=== PATIENT | male | born 1980 | race Caucasian/White ===

== ENCOUNTER 2021-07-17 08:57 | Inpatient (IN) | payer SELFPAY ==
[2021-07-17] MEDS ORDERED: CIPROFLOXACIN 400mg IV 400 MG/200 ML BAG IV ONE (09:42)
[2021-07-17] MEDS ORDERED: MORPHINE 2 MG/ML SYR ONE ×2 (09:42→10:39)
[2021-07-17] MEDS ORDERED: LORazepam 2 MG/ML VIAL ONE (09:42)
[2021-07-17] MEDS ORDERED: ONDANSETRON 4 MG/2 ML VIAL ONE ×2 (09:42→12:35)
[2021-07-17] MEDS ORDERED: VANCOMYCIN 1 GM in NA CHLORIDE 0.9% 250 ML IVPB ONE (10:00)
[2021-07-17 10:20] LABS: Absolute Lymphocytes (CBC) 1.4 K/uL (0.7-4.9); Lymphocytes % 7.6 % (15.3-44.8); MPV 7.3 fL (7.6-11.3); RBC Red Blood Cell Count 4.94 M/uL (4.33-5.43)
[2021-07-17 10:30] LABS: Albumin 4.1 g/dL (3.4-5.0); Bilirubin Direct 0.2 mg/dL (0-0.2); C-Reactive Protein 93.4 mg/L (<3.00); Potassium 3.6 mmol/L (3.5-5.1)
[2021-07-17 10:34] LABS: Protein, Total 8.1 g/dL (6.4-8.2)
--- NOTE | 2021-07-17 11:01 | ER ---
Nurse's Notes [facility] Name: Erik Ortiz Age: 41 yrs Sex: Male : 1980 Arrival Date: 07/17/2021 Time: 08:58 Bed 7 Private MD: Diagnosis: Cellulitis of right lower limb Presentation: 07/17 09:00 Chief complaint: EMS states: Spider bite from 05/27/20 to right medial ankle, redness jl7 and swelling noted. Pt reports "I've been to like 6 hospitals for this and taken a bunch of antibiotics but it still looks like this.". Coronavirus screen: At this time, the client does not indicate any symptoms associated with coronavirus-19. Ebola Screen: No symptoms or risks identified at this time. Initial Sepsis Screen: Does the patient meet any 2 criteria? No. Patient's initial sepsis screen is negative. Does the patient have a suspected source of infection? No. Patient's initial sepsis screen is negative. Risk Assessment: Do you want to hurt yourself or someone else? Patient reports no desire to harm self or others. Onset of symptoms was May 27, 2020. Care prior to arrival: None. 09:00 Method Of Arrival: EMS: [facility] jl7 09:00 Acuity: LD 3 jl7 Triage Assessment: 09:04 General: Appears in no apparent distress. uncomfortable, Behavior is cooperative, jl7 anxious. Pain: Complains of pain in right ankle Pain currently is 9.5 out of 10 on a pain scale. Pain began x 2 months. Neuro: Level of Consciousness is awake, alert, obeys commands, Oriented to person, place, time, situation. Cardiovascular: Patient's skin is warm and dry. Respiratory: Airway is patent Respiratory effort is even, unlabored, Respiratory pattern is regular, symmetrical. Derm: Skin is pink, warm \\T\\ dry. Injury Description: Bite sustained to right ankle caused by a spider, is from insect was sustained x 2 months. Historical: - Allergies: 09:04 Apples; jl7 - Home Meds: 09:04 None [Active]; jl7 - PMHx: 09:04 None; jl7 - PSHx: 09:04 None; jl7 - Immunization history:: Client reports having NOT received the Covid vaccine. - Social history:: Smoking status: Patient reports the use of cigarette tobacco products, smokes one pack cigarettes per day. Patient/guardian denies using alcohol, street drugs. Screenin:09 Abuse screen: Denies threats or abuse. Denies injuries from another. Nutritional [facility] screening: No deficits noted. Tuberculosis screening: No symptoms or risk factors identified. Fall Risk None identified. Assessment: 09:05 Reassessment: See triage. [facility] 09:09 Reassessment: GISSELLE Lester at bedside assessing pt. [facility] 10:00 Reassessment: Patient appears in no apparent distress at this time. No changes from jl7 previously documented assessment. Patient and/or family updated on plan of care and expected duration. Pain level reassessed. Patient is alert, oriented x 3, equal unlabored respirations, skin warm/dry/pink. 11:00 Reassessment: Patient appears in no apparent distress at this time. No changes from jl7 previously documented assessment. Patient and/or family updated on plan of care and expected duration. Pain level reassessed. Patient is alert, oriented x 3, equal unlabored respirations, skin warm/dry/pink. 12:00 Reassessment: Patient appears in no apparent distress at this time. No changes from jl7 previously documented assessment. Patient and/or family updated on plan of care and expected duration. Pain level reassessed. Patient is alert, oriented x 3, equal unlabored respirations, skin warm/dry/pink. 13:00 Reassessment: Patient appears in no apparent distress at this time. No changes from jl7 previously documented assessment. Patient and/or family updated on plan of care and expected duration. Pain level reassessed. Patient is alert, oriented x 3, equal unlabored respirations, skin warm/dry/pink. 14:00 Reassessment: Patient appears in no apparent distress at this time. No changes from jl7 previously documented assessment. Patient and/or family updated on plan of care and expected duration. Pain level reassessed. Patient is alert, oriented x 3, equal unlabored respirations, skin warm/dry/pink. 15:00 Reassessment: Patient appears in no apparent distress at this time. No changes from jl7 previously documented assessment. Patient and/or family updated on plan of care and expected duration. Pain level reassessed. Patient is alert, oriented x 3, equal unlabored respirations, skin warm/dry/pink. 16:00 Reassessment: Patient appears in no apparent distress at this time. No changes from jl7 previously documented assessment. Patient and/or family updated on plan of care and expected duration. Pain level reassessed. Patient is alert, oriented x 3, equal unlabored respirations, skin warm/dry/pink. 16:30 Reassessment: Attempted to call report, nurse unavailable, Roxane states "She will jl7 call you in a few minutes.". 18:30 Reassessment: Attempted to call report, nurse unavailable, Roxane states "She's jl7 getting a pt ready for EMS, she will call you back.". 19:34 Reassessment: Attempted to call report. nurse states she unavailable because she is sm5 still getting report from day shift. Vital Signs: 09:00 BP 144 / 83; Pulse 100; Resp 17; Temp 98.3; Pulse Ox 99% ; Weight 86.18 kg; Height 5 7 ft. 10 in. (177.80 cm); Pain 9/10; 10:08 BP 142 / 85; Pulse 92; Resp 17; Pulse Ox 99% ; jl7 13:00 BP 129 / 86; Pulse 98; Resp 15; Pulse Ox 100% ; jl7 16:39 BP 129 / 83; Pulse 91; Resp 15; Pulse Ox 98% ; jl7 09:00 Body Mass Index 27.26 (86.18 kg, 177.80 cm) jl7 ED Course: 08:58 Patient arrived in ED. jl7 08:58 Trevon Fish PA is PHCP. jr8 08:59 Jake Reyes MD is Attending Physician. jr8 09:04 Triage completed. jl7 09:04 Arm band placed on right wrist. jl7 09:09 Patient has correct armband on for positive identification. Bed in low position. Call [facility] light in reach. Side rails up X 1. Pulse ox on. NIBP on. 09:35 Dereje Flood RN is Primary Nurse. jl7 10:00 Inserted saline lock: 20 gauge in right antecubital area, using aseptic technique. jl7 Blood collected. 10:00 Initial lab(s) drawn, by mt, sent to lab. First set of blood cultures drawn by mt. jl7 10:04 Second set of blood cultures drawn by mt. jl7 10:56 Alfredo Adhikari MD is Hospitalizing Provider. jr8 11:15 XRAY Ankle RIGHT 3 view In Process Unspecified. EDMS 16:37 No provider procedures requiring assistance completed. Patient admitted, IV remains in jl7 place. intact, No redness/swelling at site. Administered Medications: 10:05 Drug: Cipro (ciprofloxacin) 400 mg Volume: 200 ml; Route: IVPB; Infused Over: 60 mins; jl7 Site: right antecubital; 11:05 Follow up: Response: No adverse reaction; IV Status: Completed infusion jl7 10:05 Drug: Ativan (LORazepam) 1 mg Route: IVP; Site: right antecubital; jl7 10:30 Follow up: Response: No adverse reaction jl7 10:05 Drug: Zofran (Ondansetron) 4 mg Route: IVP; Site: right antecubital; jl7 17:22 Follow up: Response: No adverse reaction jl7 10:08 Drug: morphine 2 mg Route: IVP; Site: right antecubital; jl7 10:30 Follow up: Response: No adverse reaction; Pain is decreased jl7 11:00 Drug: vancoMYCIN 1 grams Route: IVPB; Infused Over: 2 hrs; Site: right antecubital; jl7 13:00 Follow up: Response: No adverse reaction; IV Status: Completed infusion jl7 12:36 Drug: Zofran (Ondansetron) 4 mg Route: IVP; Site: right antecubital; ss 13:00 Follow up: Response: No adverse reaction jl7 Outcome: 11:01 Decision to Hospitalize by Provider. jr8 20:14 Admitted to Med/surg accompanied by tech, via wheelchair, with chart. 5 20:14 Condition: stable 20:14 Instructed on the need for admit. 20:15 Patient left the ED. 5 Signatures: Dispatcher [employer] EDMS Clau Francois RN RN Trevon Worrell PA PA jr8 Dereje Flood RN RN jl7 Ava Raya RN RN 5 Corrections: (The following items were deleted from the chart) 09:08 09:04 Allergies: No Known Allergies; 7 jl7 10:08 10:00 Cipro (ciprofloxacin) 400 mg 200 ml IVPB in right antecubital over 60 mins 200 ml jl7 jl7 16:39 16:00 BP 129 / 83; Pulse 91bpm; Resp 15bpm; Pulse Ox 98%; jl7 jl7
--- NOTE | 2021-07-17 11:01 | EDPHYS ---
Physician Documentation [facility] Name: Erik Ortiz Age: 41 yrs Sex: Male : 1980 Arrival Date: 07/17/2021 Time: 08:58 Bed 7 Private MD: ED Physician Jake Reyes HPI: 07/17 10:41 This 41 yrs old Male presents to ER via EMS with complaints of Swelling right leg. jr8 10:41 The patient presents with pain, swelling, tenderness, redness. The complaints affect jr8 the right lower extremity. Onset: The symptoms/episode began/occurred gradually, 2 day(s) ago. Modifying factors: The symptoms are alleviated by nothing. the symptoms are aggravated by movement, weight bearing. Associated signs and symptoms: The patient has no apparent associated signs or symptoms. Severity of symptoms: At their worst the symptoms were moderate, in the emergency department the symptoms are unchanged. The patient has experienced similar episodes in the past. The patient has been recently seen by a physician:. Patient stated that he has been undergoing wound care and recently had ABX which he completed for right lower extremity wound. Stated that the redness had improved but now that he is off antibiotics is having increased redness, swelling, and pain to right lower leg. Stated that pain is so bad that he is unable to ambulation on extremity . Historical: - Allergies: 09:04 Apples; jl7 - Home Meds: 09:04 None [Active]; jl7 - PMHx: 09:04 None; jl7 - PSHx: 09:04 None; jl7 - Immunization history:: Client reports having NOT received the Covid vaccine. - Social history:: Smoking status: Patient reports the use of cigarette tobacco products, smokes one pack cigarettes per day. Patient/guardian denies using alcohol, street drugs. ROS: 10:41 Eyes: Negative for injury, pain, redness, and discharge, ENT: Negative for injury, jr8 pain, and discharge, Neck: Negative for injury, pain, and swelling, Cardiovascular: Negative for chest pain, palpitations, and edema, Respiratory: Negative for shortness of breath, cough, wheezing, and pleuritic chest pain, Abdomen/GI: Negative for abdominal pain, nausea, vomiting, diarrhea, and constipation, Back: Negative for injury and pain, Neuro: Negative for headache, weakness, numbness, tingling, and seizure. 10:41 MS/extremity: Positive for decreased range of motion, erythema, pain, swelling, tenderness, warmth, of the right lower extremity. 10:41 Skin: Positive for erythema. Exam: 10:45 Neck: Trachea midline, no thyromegaly or masses palpated, and no cervical jr8 lymphadenopathy. Supple, full range of motion without nuchal rigidity, or vertebral point tenderness. No Meningismus. Cardiovascular: Regular rate and rhythm with a normal S1 and S2. No gallops, murmurs, or rubs. Normal PMI, no JVD. No pulse deficits. Respiratory: Lungs have equal breath sounds bilaterally, clear to auscultation and percussion. No rales, rhonchi or wheezes noted. No increased work of breathing, no retractions or nasal flaring. Abdomen/GI: Soft, non-tender, with normal bowel sounds. No distension or tympany. No guarding or rebound. No evidence of tenderness throughout. Skin: Warm, dry with normal turgor. Normal color. Small ulcerative lesions to left foot and leg noted. Erythema noted to right lower leg that is circumfrential. Small wound noted to anterior distal tibia where the surrounding erythema is MS/ Extremity: Pulses equal, no cyanosis. Neurovascular intact. Full, normal range of motion. Neuro: Awake and alert, GCS 15, oriented to person, place, time, and situation. Cranial nerves II-XII grossly intact. Motor strength 5/5 in all extremities. Sensory grossly intact. 10:45 Constitutional: The patient appears alert, awake, anxious, in obvious pain. Vital Signs: 09:00 BP 144 / 83; Pulse 100; Resp 17; Temp 98.3; Pulse Ox 99% ; Weight 86.18 kg; Height 5 jl7 ft. 10 in. (177.80 cm); Pain 9/10; 10:08 BP 142 / 85; Pulse 92; Resp 17; Pulse Ox 99% ; jl7 13:00 BP 129 / 86; Pulse 98; Resp 15; Pulse Ox 100% ; jl7 16:39 BP 129 / 83; Pulse 91; Resp 15; Pulse Ox 98% ; jl7 09:00 Body Mass Index 27.26 (86.18 kg, 177.80 cm) 7 MDM: 08:59 Patient medically screened. jr8 10:56 Data reviewed: vital signs, nurses notes, lab test result(s), radiologic studies, plain [facility] films. Data interpreted: Pulse oximetry: on room air is 99 %. Interpretation: normal. Counseling: I had a detailed discussion with the patient and/or guardian regarding: the historical points, exam findings, and any diagnostic results supporting the discharge/admit diagnosis, lab results, radiology results, the need for further work-up and treatment in the hospital. 07/17 09:32 Order name: CBC with Diff; Complete Time: 10:41 [facility] 07/17 09:32 Order name: Basic Metabolic Panel; Complete Time: 10:41 [facility] 07/17 09:32 Order name: LFT's; Complete Time: 10:41 [facility] 07/17 09:32 Order name: Blood Culture Adult (2) [facility] 07/17 09:32 Order name: CRP; Complete Time: 10:41 [facility] 07/17 09:32 Order name: Procalcitonin; Complete Time: 10:53 [facility] 07/17 10:45 Order name: XRAY Ankle RIGHT 3 view; Complete Time: 11:23 [facility] 07/17 11:18 Order name: COVID-19 (Coronavirus) Document "Date of Onset" if Symptomatic [facility] 07/17 12:17 Order name: Lower Extremity W/ Cont; Complete Time: 13:23 [facility] 07/17 13:56 Order name: SARS-COV-2 RT PCR; Complete Time: 14:17 [facility] 07/17 09:32 Order name: IV; Complete Time: 10:07 [facility] 07/17 11:17 Order name: Diet Regular; Complete Time: 11:18 [facility] 07/17 12:11 Order name: CONS Physician Consult [facility] 07/17 12:20 Order name: Diet Regular; Complete Time: 12:20 jl7 Administered Medications: 10:05 Drug: Cipro (ciprofloxacin) 400 mg Volume: 200 ml; Route: IVPB; Infused Over: 60 mins; jl7 Site: right antecubital; 11:05 Follow up: Response: No adverse reaction; IV Status: Completed infusion jl7 10:05 Drug: Ativan (LORazepam) 1 mg Route: IVP; Site: right antecubital; jl7 10:30 Follow up: Response: No adverse reaction jl7 10:05 Drug: Zofran (Ondansetron) 4 mg Route: IVP; Site: right antecubital; jl7 17:22 Follow up: Response: No adverse reaction jl7 10:08 Drug: morphine 2 mg Route: IVP; Site: right antecubital; jl7 10:30 Follow up: Response: No adverse reaction; Pain is decreased jl7 11:00 Drug: vancoMYCIN 1 grams Route: IVPB; Infused Over: 2 hrs; Site: right antecubital; jl7 13:00 Follow up: Response: No adverse reaction; IV Status: Completed infusion jl7 12:36 Drug: Zofran (Ondansetron) 4 mg Route: IVP; Site: right antecubital; ss 13:00 Follow up: Response: No adverse reaction jl7 Disposition Summary: 07/17/21 11:01 Hospitalization Ordered Hospitalization Status: Inpatient Admission jr8 Provider: Alfredo Adhikari Location: Telemetry/MedSurg (Inpatient) jr8 Condition: Stable jr8 Problem: new jr8 Symptoms: have improved jr8 Bed/Room Type: Standard [facility] Room Assignment: 210(07/17/21 14:49) as6 Diagnosis - Cellulitis of right lower limb jr8 Forms: - Medication Reconciliation Form jr8 - SBAR form jr8 Signatures: Dispatcher [employer] EDMS Clau Francois RN RN ss Roszak, Josh, PA PA jr8 Dereje Flood RN RN jl7 Buster Zarco RN RN as6 Corrections: (The following items were deleted from the chart) 09:08 09:04 Allergies: No Known Allergies; 7 14:49 11:01 jr8 as6
--- NOTE | 2021-07-17 11:22 | RAD REPORT ---
EXAM DESCRIPTION: RAD - Ankle Right 3 View - 07/17/2021 11:14 am CLINICAL HISTORY: Right ankle pain FINDINGS: No fracture or dislocation is seen. Edema within the soft tissues. No bony destructive lesions seen
[2021-07-17] MEDS ORDERED: VANCOMYCIN 1 GM/VIAL ONE (11:25)
[2021-07-17] MEDS ORDERED: NA CHLORIDE 0.9% 250 ML ONE (11:25)
--- NOTE | 2021-07-17 12:15 | P.CNS ---
Date of Consult: 07/17/21 History of Present Illness: The patient is a 41-year-old male with a past medical history of throat cancer? Who presented to the emergency department secondary to increased redness swelling and pain to his right lower extremity. Patient is poor historian, difficult to obtain history. Patient states that he has been hospitalized since May of this year secondary to the foot infection. He states that the infection initially began after he was cleaning out a trailer in [place] and got a spider bite on May 17. Per patient he is hospitalized initially in April secondary to suicidal ideations, he was then placed in patient at [facility]. Following this stay, he was hospitalized at [facility] as well as [place] due to his foot infection. He states that he was placed on doxycycline for 10 days however after he completed the antibiotics the infection began to worsen. He currently reports of nausea, vomiting, diarrhea, abdominal pain, and right lower extremity pain. He denies shortness breath or chest pain. Allergies No Known Allergies Allergy (Unverified 07/17/21 09:45) Review of Systems 10-point ROS is otherwise unremarkable Physical Examination General: Other (Rapid/disorganized speech, appears anxious) HEENT: Atraumatic, Normocephalic Neck: Supple, 2+ carotid pulse no bruit Respiratory: Clear to auscultation bilaterally, Normal air movement Cardiovascular: Regular rate/rhythm, Normal S1 S2 Capillary refill: <2 Seconds Gastrointestinal: Other (Tenderness all 4 abdominal quadrants) Integumentary: Other ( right lower extremity cellulitis. Honey crusted lesion to right foot.) Laboratory Data (last 24 hrs) 07/17/21 10:04: Sodium 135 L, Potassium 3.6, BUN 11, Creatinine 1.01, Glucose 100, Total Bilirubin 1.0, AST 17, ALT 72, Alkaline Phosphatase 60 07/17/21 10:04: WBC 18.30 H, Hgb 15.1, Hct 44.0, Plt Count 277 Conclusions/Impression: Antibiotics: Vancomycin start: 07/17 Assessment/plan Right lower extremity cellulitis Per patient he has been dealing with this infection since May 17 after sustaining a spider bite. States that he had the area I and D data previous hospital. Area now has crusted over lesion. Recommend continuing IV vancomycin and obtaining CT imaging of the area. -medical management per primary team -plan of care discussed with Dr. Haas -thank you for consultation
--- NOTE | 2021-07-17 12:23 | P.HP ---
Certification for Inpatient Patient admitted to: Inpatient With expected LOS: >2 Midnights Practitioner: I am a practitioner with admitting privileges, knowledge of patient current condition, hospital course, and medical plan of care. Services: Services provided to patient in accordance with Admission requirements found in Title 42 Section 412.3 of the Code of Federal Regulations Patient History Date of Service: 07/17/21 Reason for admission: Recurrent right lower extremity cellulitis History of Present Illness: 41yo M, PMH: Recurrent cellulitis over the last 2 months, anxiety Presents to the ED due to 1 day of progressively worsening right lower extremity erythema, pain, and swelling. He has been dealing with cellulitis/abscess of this area since 05/14/21 He has been in and out of multiple ER/hospitals for this, s/p I&D on 05/22. He was recently been treated with doxycycline for 5 days, last taken 2 days ago. He reports recently diving in [place]. Denies any drainage. He states he was living in [place] and recently moved to [place] few months ago, no PCP here. States he travels often. Patient is tangential and difficult to get some details from him. In the ED, he was noted to have significant cellulitis and pain. Leukocytosis. ER provider requested admission for further management. Allergies No Known Allergies Allergy (Unverified 07/17/21 09:45) - Past Medical/Surgical History -: vocal cord nodules -: anxiety -: recurrent cellulitis -: appendectomy - Family History Family History: Reviewed- Non-Contributory (unknown) - Social History Smoking Status: Current some day smoker Alcohol use: Yes Place of Residence: Home Review of Systems 10-point ROS is otherwise unremarkable Physical Examination - Physical Exam General: Alert, Oriented x3, Other (Appears uncomfortable when moving legs) HEENT: Sclerae nonicteric Neck: Supple, No LAD Respiratory: Clear to auscultation bilaterally, Normal air movement Cardiovascular: Regular rate/rhythm, Edema (1+ RLE up to knee) Gastrointestinal: Soft and benign, Non-distended, No tenderness Musculoskeletal: No swelling Integumentary: Other (Erythema and warmth of right lower extremity with small (subcentimeter) lesion just above ankle without drainage. Patient is very tender to touch. L LE: Foot with slight erythema and tenderness, no induration, no appreciable abscess) Neurological: Normal strength at 5/5 x4 extr, Cranial nerves 3-12 intact, Other (Anxious appearing, mild tangential thinking) - Studies Laboratory Data (last 24 hrs) 07/17/21 10:04: Sodium 135 L, Potassium 3.6, BUN 11, Creatinine 1.01, Glucose 100, Total Bilirubin 1.0, AST 17, ALT 72, Alkaline Phosphatase 60 07/17/21 10:04: WBC 18.30 H, Hgb 15.1, Hct 44.0, Plt Count 277 Assessment and Plan - Advance Directives Does patient have a Living Will: No Does patient have a Durable POA for Healthcare: No Physician Review Additional Text: Problem list Right lower extremity cellulitis, recurrent, failed outpatient therapy Anxiety Has been recurrent with these infections over the last 2 months, improves with antibiotics and then recurs within 2 days of stopping Unclear exactly how compliance patient is, how clean Patient does not appear septic, however does have impressive cellulitis tenderness Pain medication as needed We will give Valium, patient reports he takes this for many years. 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
--- NOTE | 2021-07-17 13:11 | RAD REPORT ---
EXAM DESCRIPTION: CT - Lower Extremity W/ Cont - 07/17/2021 12:46 pm CLINICAL HISTORY: recurrent infection, eval for abscess, osteo COMPARISON: Ankle Right 3 View dated 07/17/2021 TECHNIQUE: During dynamic enhancement using nonionic IV contrast, axial 2 millimeter thick images we re obtained from the mid tip-fib level to the distal most aspect of the right-side toes. Sagittal and coronal reformatted images were generated and reviewed using MIPS protocol. All CT scans are performed using dose optimization technique as appropriate and may include automate d exposure control or mA/KV adjustment according to patient size. FINDINGS: Motion artifacts limits the evaluation of the phalanges. Otherwise, examination is technic ally satisfactory. History indicates spider bite to the left ankle. Specific site was not marked. No cortical disruption or bone destructive changes are identifiable. There are no finding seen that woul d suggest bone destructive osteomyelitis. At the mid tib-fib level there is edema in the subcutaneous fatty tissues along the medial aspect of the leg with a least 1 small reactive lymph nodes seen. Near the ankle joint the subcutaneous fatty e judy pattern becomes circumferential. No abscess or drainable fluid collections seen. No air or forei gn body in the soft tissues. No extravasation of contrast or vascular abnormality noted. IMPRESSION: Prominent cellulitis or edema pattern of the circumferential fatty tissues around the an kle joint and extending medially to at least mid tib-fib level. No abscess or drainable fluid collection identified. No air or foreign body in the soft tissues. No bone destruction or erosive change. No evidence for osteomyelitis.
[2021-07-17] MEDS ORDERED: ONDANSETRON 4 MG/2 ML VIAL IV PRN (19:58)
[2021-07-17] MEDS ORDERED: ACETAMINOPHEN 500 MG TAB PO PRN (19:58)
[2021-07-17] MEDS ORDERED: DIAZEPAM 5 MG TABLET ONE (20:02)
[2021-07-17] MEDS: DIAZEPAM 5 MG TABLET PO PRN (20:03)
[2021-07-17] MEDS ORDERED: VANCOMYCIN 1.25 GM in NA CHLORIDE 0.9% 250 ML IVPB SCH (21:00)
[2021-07-17] MEDS: NA CHLORIDE 0.9% 1,000 ML IV SCH (21:21)
[2021-07-17] MEDS ORDERED: VANCOMYCIN 500 MG/VIAL ONE (21:52)
[2021-07-17] MEDS ORDERED: VANCOMYCIN 1.5 GM in NA CHLORIDE 0.9% 500 ML IVPB ONE (22:00)
[2021-07-17] MEDS: MORPHINE 4 MG/ML SYR IV PRN (22:09)
[2021-07-17 22:58] VITALS: BMI 27.2
[2021-07-18] MEDS: TRAMADOL HCL 50 MG TAB PO PRN (02:24)
[2021-07-18] MEDS: NA CHLORIDE 0.9% 1,000 ML IV SCH (05:24)
[2021-07-18] MEDS: MORPHINE 4 MG/ML SYR IV PRN ×3 (05:25→18:36)
--- NOTE | 2021-07-18 05:58 | P.PN ---
Date of Service: 07/18/21 Subjective: still having pain / tingling, redness, and swelling, but improved too painful to bear weight no new complaints ROS: 10 point ROS as noted above, otherwise negative Physical exam General: Alert, Oriented x3 HEENT: Sclerae nonicteric Respiratory: Clear to auscultation bilaterally, Normal air movement Cardiovascular: Regular rate/rhythm, RLE with trace-1+ edema to knee Gastrointestinal: Soft, benign, Non-distended, No tenderness Integumentary: Erythema and warmth of right lower extremity with small (subcentimeter) lesion just above ankle without drainage. Patient is very tender to touch. L LE: Foot with slight erythema and tenderness, no induration, no appreciable abscess) Neurological: Normal strength at 5/5 x4 extr, Cranial nerves 3-12 intact Problem list Right lower extremity cellulitis, recurrent, failed outpatient therapy Anxiety Has been recurrent with these infections over the last 2 months, improves with antibiotics and then recurs within 2 days of stopping Unclear exactly how compliant patient is improving, still painful /tender Pain medication as needed continue Valium PRN, patient reports he takes this for many years. 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
[2021-07-18 08:49] LABS: Absolute Lymphocytes (CBC) 1.9 K/uL (0.7-4.9); Hematocrit 38.7 % (39.6-49.0); Lymphocytes % 22.4 % (15.3-44.8); MPV 7.6 fL (7.6-11.3); RBC Red Blood Cell Count 4.26 M/uL (4.33-5.43)
[2021-07-18] MEDS: ENOXAPARIN 40 MG/0.4 ML SQ SCH (09:00)
[2021-07-18 09:02] LABS: Albumin 2.7 g/dL (3.4-5.0); Bilirubin Total 0.5 mg/dL (0.2-1.0); Magnesium 2.3 mg/dL (1.8-2.4); Potassium 3.6 mmol/L (3.5-5.1); Protein, Total 6.4 g/dL (6.4-8.2)
[2021-07-18] MEDS: DIAZEPAM 5 MG TABLET PO PRN ×2 (09:27→21:35)
[2021-07-18] MEDS: VANCOMYCIN 1.5 GM in NA CHLORIDE 0.9% 500 ML IVPB SCH ×2 (09:28→21:37)
--- NOTE | 2021-07-18 11:27 | P.PN ---
Subjective Date of Service: 07/18/21 Chief Complaint: Recurrent right lower extremity cellulitis patient seen and examined at bedside-right LE cellulites improving. Review of Systems 10-point ROS is otherwise unremarkable Physical Examination - Vital Signs Temperature: 98.1 F Blood Pressure: 113/57 Pulse: 94 Respirations: 18 Pulse Ox (%): 98 - Studies Laboratory Last Values WBC 18.30 K/uL (4.3-10.9) H 07/17/21 10:04 RBC 4.94 M/uL (4.33-5.43) 07/17/21 10:04 Hgb 15.1 g/dL (13.6-17.9) 07/17/21 10:04 Hct 44.0 % (39.6-49.0) 07/17/21 10:04 MCV 89.1 fL (80-100) 07/17/21 10:04 MCH 30.5 pg (27.0-35.0) 07/17/21 10:04 MCHC 34.2 g/dL (32.0-36.0) 07/17/21 10:04 RDW 13.3 % (12.1-15.2) 07/17/21 10:04 Plt Count 277 K/uL (152-406) 07/17/21 10:04 MPV 7.3 fL (7.6-11.3) L 07/17/21 10:04 Neutrophils % 83.6 % (41.7-73.7) H 07/17/21 10:04 Lymphocytes % 7.6 % (15.3-44.8) L 07/17/21 10:04 Monocytes % 8.4 % (3.3-12.3) 07/17/21 10:04 Eosinophils % 0.2 % (0-4.4) 07/17/21 10:04 Basophils % 0.2 % (0-1.3) 07/17/21 10:04 Absolute Neutrophils 15.3 K/uL (1.8-8.0) H 07/17/21 10:04 Absolute Lymphocytes 1.4 K/uL (0.7-4.9) 07/17/21 10:04 Absolute Monocytes 1.5 K/uL (0.1-1.3) H 07/17/21 10:04 Absolute Eosinophils 0.0 K/uL (0-0.5) 07/17/21 10:04 Absolute Basophils 0.0 K/uL (0-0.5) 07/17/21 10:04 Sodium 135 mmol/L (136-145) L 07/17/21 10:04 Potassium 3.6 mmol/L (3.5-5.1) 07/17/21 10:04 Chloride 100 mmol/L (98-107) 07/17/21 10:04 Carbon Dioxide 28 mmol/L (21-32) 07/17/21 10:04 BUN 11 mg/dL (7-18) 07/17/21 10:04 Creatinine 1.01 mg/dL (0.55-1.3) 07/17/21 10:04 Estimated GFR 82 mL/min (=/>90) L 07/17/21 10:04 Glucose 100 mg/dL (74-106) 07/17/21 10:04 Calcium 9.0 mg/dL (8.5-10.1) 07/17/21 10:04 Total Bilirubin 1.0 mg/dL (0.2-1.0) 07/17/21 10:04 Direct Bilirubin 0.2 mg/dL (0-0.2) 07/17/21 10:04 AST 17 U/L (15-37) 07/17/21 10:04 ALT 72 U/L (12-78) 07/17/21 10:04 Alkaline Phosphatase 60 U/L (45-117) 07/17/21 10:04 C-Reactive Protein 93.40 mg/L (<3.00) H 07/17/21 10:04 Serum Total Protein 8.1 g/dL (6.4-8.2) 07/17/21 10:04 Albumin 4.1 g/dL (3.4-5.0) 07/17/21 10:04 Globulin 4.0 g/dL (2.3-3.5) H 07/17/21 10:04 Albumin/Globulin Ratio 1.0 (1.1-1.8) L 07/17/21 10:04 Procalcitonin 0.08 ng/mL (<0.050) H 07/17/21 10:04 SARS-CoV-2 Rap RNA(RT-PCR) Negative (NEGATIVE) 07/17/21 11:30 Assessment And Plan - Plan Physical Exam: General: Other (Rapid/disorganized speech, appears anxious) HEENT: Atraumatic, Normocephalic Neck: Supple, 2+ carotid pulse no bruit Respiratory: Clear to auscultation bilaterally, Normal air movement Cardiovascular: Regular rate/rhythm, Normal S1 S2 Capillary refill: <2 Seconds Gastrointestinal: Other (Tenderness all 4 abdominal quadrants) Integumentary: Other ( right lower extremity cellulitis. Honey crusted lesion to right foot.) Conclusions/Impression: Antibiotics: Vancomycin start: 07/17 Assessment/plan Right lower extremity cellulitis Per patient he has been dealing with this infection since May 17 after he was bit by a spider. States that he had the area I&D data previous hospital. Area now has crusted over lesion. Recommend continuing IV vancomycin at this time. CT showed cellulitis, no other acute findings. -medical management per primary team -plan of care discussed with Dr. Haas -thank you for consultation Physician Review Additional Text: Problem list Right lower extremity cellulitis, recurrent, failed outpatient therapy Anxiety Has been recurrent with these infections over the last 2 months, improves with antibiotics and then recurs within 2 days of stopping Unclear exactly how compliance patient is, how clean Patient does not appear septic, however does have impressive cellulitis tenderness Pain medication as needed We will give Valium, patient reports he takes this for many years. 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
[2021-07-19] MEDS: MORPHINE 4 MG/ML SYR IV PRN ×4 (00:20→23:33)
--- NOTE | 2021-07-19 05:54 | P.PN ---
Date of Service: 07/19/21 Subjective: Continues to improve, still with some slight erythema of right lower extremity, continues with moderate tenderness as well Reports is very painful but able to slowly ambulate to the bathroom No new complaints ROS: 10 point ROS as noted above, otherwise negative Physical exam General: Alert, Oriented x3 HEENT: Sclerae nonicteric Respiratory: Clear to auscultation bilaterally, Normal air movement Cardiovascular: Regular rate/rhythm, RLE with trace edema to knee Gastrointestinal: Soft, benign, Non-distended, No tenderness Integumentary: Erythema and warmth of right lower extremity with small (subcentimeter) lesion just above ankle without drainage. mild-mod tenderness. L LE: Foot with minimal erythema and tenderness, no induration, no appreciable abscess) Problem list Right lower extremity cellulitis, recurrent, failed outpatient therapy Anxiety recurrent lower extremity infections over the last 2 months, improves with antibiotics and then recurs within 2 days of stopping improving, but still painful /tender Pain medication as needed continue Valium PRN, patient reports he takes this for many years. 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
[2021-07-19] MEDS: ENOXAPARIN 40 MG/0.4 ML SQ SCH ×2 (09:00→09:40)
[2021-07-19] MEDS: VANCOMYCIN 1.5 GM in NA CHLORIDE 0.9% 500 ML IVPB SCH ×3 (10:00→20:48)
[2021-07-19] MEDS: DIAZEPAM 5 MG TABLET PO PRN ×2 (10:34→23:00)
[2021-07-19 11:20] LABS: Absolute Lymphocytes (CBC) 1.2 K/uL (0.7-4.9); Hematocrit 39.9 % (39.6-49.0); Lymphocytes % 15.3 % (15.3-44.8); MPV 7.9 fL (7.6-11.3); RBC Red Blood Cell Count 4.48 M/uL (4.33-5.43)
[2021-07-19 11:42] LABS: ALT/SGPT 45 U/L (12-78); AST/SGOT 17 U/L (15-37); Albumin 2.7 g/dL (3.4-5.0); Alkaline Phosphatase 44 U/L (45-117); BUN Blood Urea Nitrogen 9 mg/dL (7-18); Bicarbonate 25 mmol/L (21-32); Bilirubin Total 0.4 mg/dL (0.2-1.0); Glucose Level 96 mg/dL (74-106); Magnesium 2.2 mg/dL (1.8-2.4); Potassium 4.2 mmol/L (3.5-5.1); Protein, Total 6.4 g/dL (6.4-8.2); Sodium Level 138 mmol/L (136-145)
--- NOTE | 2021-07-20 05:55 | P.PN ---
Date of Service: 07/20/21 Subjective: Continued improvement Swelling has improved, erythema has improved Ambulated somewhat yesterday. Reports still painful Right foot greater than left No new complaints/concerns ROS: 10 point ROS as noted above, otherwise negative Physical exam General: Alert, Oriented x3 Respiratory: Clear to auscultation bilaterally, Normal air movement Cardiovascular: Regular rate/rhythm, RLE with trace edema around ankle Gastrointestinal: Soft, benign, Non-distended, No tenderness Integumentary: RLE: Mild erythema, mild tenderness, no drainage, no induration. LLE: no erythema, no tenderness, no lesion Problem list Right lower extremity cellulitis, recurrent, failed outpatient therapy Anxiety recurrent lower extremity infections over the last 2 months, improves with antibiotics and then recurs within 2 days of stopping improving, but still painful /tender. R>L Pain medication as needed continue Valium PRN, patient reports prior prescriptions. 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
[2021-07-20] MEDS: MORPHINE 4 MG/ML SYR IV PRN (05:57)
[2021-07-20] MEDS: VANCOMYCIN 1.5 GM in NA CHLORIDE 0.9% 500 ML IVPB SCH (05:57)
[2021-07-20] MEDS: ENOXAPARIN 40 MG/0.4 ML SQ SCH (08:39)
[2021-07-20] MEDS ORDERED: MORPHINE 4 MG/ML SYR IV PRN (10:40)
[2021-07-20] MEDS: DIAZEPAM 5 MG TABLET PO PRN (10:52)
[2021-07-20] MEDS: MORPHINE 2 MG/ML SYR IV PRN ×2 (17:31→23:55)
[2021-07-21] MEDS: DIAZEPAM 5 MG TABLET PO PRN ×2 (00:01→12:53)
[2021-07-21] MEDS: MORPHINE 2 MG/ML SYR IV PRN (05:57)
[2021-07-21 06:02] LABS: Hematocrit 43.6 % (39.6-49.0); MPV 7.4 fL (7.6-11.3); RBC Red Blood Cell Count 4.82 M/uL (4.33-5.43)
--- NOTE | 2021-07-21 06:12 | P.PN ---
Date of Service: 07/21/21 Subjective: Improving, still with pain with ambulation Minimal erythema/swelling No new complaints ROS: 10 point ROS as noted above, otherwise negative Physical exam General: Alert, Oriented x3 Respiratory: Clear to auscultation bilaterally, Normal air movement Cardiovascular: Regular rate/rhythm, RLE with trace edema around ankle Gastrointestinal: Soft, benign, Non-distended, No tenderness Integumentary: RLE: Minimal erythema, mild tenderness, no drainage, no induration. LLE: no erythema, no tenderness, no lesion Problem list Right lower extremity cellulitis, recurrent, failed outpatient therapy Anxiety recurrent lower extremity infections over the last 2 months, improves with antibiotics and then recurs within 2 days of stopping improving, but still painful /tender. R>L Pain medication as needed, DC morphine continue Valium PRN, patient reports prior prescriptions. 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 VTE: lovenox Code: full Dispo: anticipate dc home in ~1 day Time Spent Managing Pts Care (In Minutes): 35
[2021-07-21 06:18] LABS: C-Reactive Protein 15.9 mg/L (<3.00); Potassium 3.7 mmol/L (3.5-5.1)
[2021-07-21] MEDS: ENOXAPARIN 40 MG/0.4 ML SQ SCH (08:19)
[2021-07-21] MEDS ORDERED: POTASSIUM CL SA 10 MEQ TAB PO ONE (09:00)
--- NOTE | 2021-07-21 10:47 | P.PN ---
Subjective Date of Service: 07/21/21 Chief Complaint: Recurrent right lower extremity cellulitis patient seen and examined at bedside-LE erythema and swelling has subsided. Review of Systems 10-point ROS is otherwise unremarkable Physical Examination - Vital Signs Temperature: 97.0 F Blood Pressure: 109/64 Pulse: 70 Respirations: 14 Pulse Ox (%): 98 - Studies Laboratory Last Values WBC 18.30 K/uL (4.3-10.9) H 07/17/21 10:04 RBC 4.94 M/uL (4.33-5.43) 07/17/21 10:04 Hgb 15.1 g/dL (13.6-17.9) 07/17/21 10:04 Hct 44.0 % (39.6-49.0) 07/17/21 10:04 MCV 89.1 fL (80-100) 07/17/21 10:04 MCH 30.5 pg (27.0-35.0) 07/17/21 10:04 MCHC 34.2 g/dL (32.0-36.0) 07/17/21 10:04 RDW 13.3 % (12.1-15.2) 07/17/21 10:04 Plt Count 277 K/uL (152-406) 07/17/21 10:04 MPV 7.3 fL (7.6-11.3) L 07/17/21 10:04 Neutrophils % 83.6 % (41.7-73.7) H 07/17/21 10:04 Lymphocytes % 7.6 % (15.3-44.8) L 07/17/21 10:04 Monocytes % 8.4 % (3.3-12.3) 07/17/21 10:04 Eosinophils % 0.2 % (0-4.4) 07/17/21 10:04 Basophils % 0.2 % (0-1.3) 07/17/21 10:04 Absolute Neutrophils 15.3 K/uL (1.8-8.0) H 07/17/21 10:04 Absolute Lymphocytes 1.4 K/uL (0.7-4.9) 07/17/21 10:04 Absolute Monocytes 1.5 K/uL (0.1-1.3) H 07/17/21 10:04 Absolute Eosinophils 0.0 K/uL (0-0.5) 07/17/21 10:04 Absolute Basophils 0.0 K/uL (0-0.5) 07/17/21 10:04 Sodium 135 mmol/L (136-145) L 07/17/21 10:04 Potassium 3.6 mmol/L (3.5-5.1) 07/17/21 10:04 Chloride 100 mmol/L (98-107) 07/17/21 10:04 Carbon Dioxide 28 mmol/L (21-32) 07/17/21 10:04 BUN 11 mg/dL (7-18) 07/17/21 10:04 Creatinine 1.01 mg/dL (0.55-1.3) 07/17/21 10:04 Estimated GFR 82 mL/min (=/>90) L 07/17/21 10:04 Glucose 100 mg/dL (74-106) 07/17/21 10:04 Calcium 9.0 mg/dL (8.5-10.1) 07/17/21 10:04 Total Bilirubin 1.0 mg/dL (0.2-1.0) 07/17/21 10:04 Direct Bilirubin 0.2 mg/dL (0-0.2) 07/17/21 10:04 AST 17 U/L (15-37) 07/17/21 10:04 ALT 72 U/L (12-78) 07/17/21 10:04 Alkaline Phosphatase 60 U/L (45-117) 07/17/21 10:04 C-Reactive Protein 93.40 mg/L (<3.00) H 07/17/21 10:04 Serum Total Protein 8.1 g/dL (6.4-8.2) 07/17/21 10:04 Albumin 4.1 g/dL (3.4-5.0) 07/17/21 10:04 Globulin 4.0 g/dL (2.3-3.5) H 07/17/21 10:04 Albumin/Globulin Ratio 1.0 (1.1-1.8) L 07/17/21 10:04 Procalcitonin 0.08 ng/mL (<0.050) H 07/17/21 10:04 SARS-CoV-2 Rap RNA(RT-PCR) Negative (NEGATIVE) 07/17/21 11:30 Assessment And Plan - Plan Physical Exam: General: Other (Rapid/disorganized speech, appears anxious) HEENT: Atraumatic, Normocephalic Neck: Supple, 2+ carotid pulse no bruit Respiratory: Clear to auscultation bilaterally, Normal air movement Cardiovascular: Regular rate/rhythm, Normal S1 S2 Capillary refill: <2 Seconds Gastrointestinal: Other (Tenderness all 4 abdominal quadrants) Integumentary: Other ( right lower extremity cellulitis. Honey crusted lesion to right foot.) Conclusions/Impression: Antibiotics: Vancomycin start: 07/17 Assessment/plan Right lower extremity cellulitis Per patient he has been dealing with this infection since May 17 after he was bit by a spider. States that he had the area I&D data previous hospital. Area now has crusted over lesion. Area improving--recommend DC vancoycin and starting bactrim. Recommend treating for total antibiotic duration of [address] showed cellulitis, no other acute findings. -medical management per primary team -plan of care discussed with Dr. Haas -thank you for consultation
[2021-07-21] MEDS: TRAMADOL HCL 50 MG TAB PO PRN ×2 (12:53→18:40)
[2021-07-21] MEDS ORDERED: VANCOMYCIN 1.75 GM in NA CHLORIDE 0.9% 500 ML IVPB SCH (13:00)
[2021-07-21] MEDS: VANCOMYCIN 1.75 GM in NA CHLORIDE 0.9% 500 ML IVPB SCH (13:00)
[2021-07-22] MEDS: TRAMADOL HCL 50 MG TAB PO PRN ×2 (00:14→09:05)
[2021-07-22] MEDS: DIAZEPAM 5 MG TABLET PO PRN ×2 (00:14→12:37)
[2021-07-22] MEDS: VANCOMYCIN 1.75 GM in NA CHLORIDE 0.9% 500 ML IVPB SCH (00:15)
[2021-07-22] MEDS: ENOXAPARIN 40 MG/0.4 ML SQ SCH (09:00)
[2021-07-22 09:38] VITALS: O2SAT 97
--- NOTE | 2021-07-22 09:56 | P.DS ---
Admission Date: 07/17/21 Discharge Date: 07/22/21 Disposition: ROUTINE DISCHARGE Discharge Condition: FAIR Reason for Admission: Recurrent right lower extremity cellulitis - Problems (1) Cellulitis of lower extremity Current Visit: Yes Status: Acute (2) Anxiety Current Visit: Yes Status: Acute Brief History of Present Illness: 41yo M, PMH: Recurrent cellulitis over the last 2 months, anxiety Patient presented to the ED due to 1 day of progressively worsening right lower extremity erythema, pain, and swelling. He has been dealing with cellulitis/abscess of this area since 05/14/21 He has been in and out of multiple ER/hospitals for this, s/p I&D on 05/22. He was recently been treated with doxycycline for 5 days, last taken 2 days ago. He reports recently diving in [place]. Denies any drainage. He states he was living in [place] and recently moved to [place] few months ago, no PCP here. In the ED, he was noted to have significant cellulitis and pain. Leukocytosis. Patient admitted for further management. Hospital Course: Right lower extremity cellulitis, recurrent, failed outpatient therapy Anxiety Recurrent lower extremity infections over the last 2 months, improves with antibiotics and then recurs within 2 days of stopping improving, Patient treated with IV Vanco CT of lower extremity - no osteo, no abscess ID consulted recommended oral Bactrim on discharge. Erythema has resolved, cellulitis visit, patient has an old crusted healed wound. He is discharged with 1 week of Bactrim. Vital Signs/Physical Exam: Temp Pulse Resp BP Pulse Ox 97.3 F 76 19 102/58 L 99 07/22/21 03:54 07/22/21 03:54 07/22/21 09:05 07/22/21 03:54 07/22/21 09:05 General: Alert, In no apparent distress, Oriented x3 HEENT: Mucous membr. moist/pink Neck: JVD not distended Respiratory: Clear to auscultation bilaterally, Normal air movement Cardiovascular: No edema, Regular rate/rhythm, Normal S1 S2 Gastrointestinal: Normal bowel sounds, Soft and benign, Non-distended Musculoskeletal: No swelling, No erythema Integumentary: No rashes Neurological: Normal strength at 5/5 x4 extr Laboratory Data at Discharge: WBC 5.00 K/uL (4.3-10.9) D 07/21/21 05:33 Hgb 14.4 g/dL (13.6-17.9) 07/21/21 05:33 Hct 43.6 % (39.6-49.0) 07/21/21 05:33 Plt Count 344 K/uL (152-406) D 07/21/21 05:33 Sodium 139 mmol/L (136-145) 07/21/21 05:33 Potassium 3.7 mmol/L (3.5-5.1) 07/21/21 05:33 BUN 8 mg/dL (7-18) 07/21/21 05:33 Creatinine 0.93 mg/dL (0.55-1.3) 07/21/21 05:33 Glucose 115 mg/dL (74-106) H 07/21/21 05:33 Magnesium 2.2 mg/dL (1.8-2.4) 07/19/21 11:04 Total Bilirubin 0.4 mg/dL (0.2-1.0) 07/19/21 11:04 AST 17 U/L (15-37) 07/19/21 11:04 ALT 45 U/L (12-78) 07/19/21 11:04 Alkaline Phosphatase 44 U/L (45-117) L 07/19/21 11:04 Home Medications: Smz./Tmp. [Bactrim Ds 800 MG/160 MG] 1 tab PO BID #14 tab 07/22/21 traMADol HCL [Ultram*] 50 mg PO Q6H PRN #20 tab 07/22/21 New Medications: Smz./Tmp. [Bactrim Ds 800 MG/160 MG] 1 tab PO BID #14 tab traMADol HCL [Ultram*] 50 mg PO Q6H PRN #20 tab PRN Reason: Pain Scale 5-7 (Moderate) Physician Discharge Instructions: PROBLEM: Left leg cellulitis GOAL: Clear understanding of disease process E-scripts sent to [facility] in [place]. INSTRUCTIONS: - Finish taking all antibiotics in their entirety as prescribed. - Follow up with your primary care provider in 1 week. - Return to the ER if your symptoms worsen. - Call the 2nd floor at if you have any questions regarding your hospital stay. Diet: Regular Activity: As tolerated IMMUNIZATION Influenza Vaccine Indicated: No Influenza Vaccine Given: Date Given: Pneumonia Vaccine Indicated: No Pneumonia Vaccine Given: Date Given: Diet: Regular Activity: Ad erica Time spent managing pt's care (in minutes): 33
--- NOTE | 2021-07-22 11:09 | P.PN ---
Subjective Date of Service: 07/22/21 Chief Complaint: Recurrent right lower extremity cellulitis patient seen and examined at bedside-no acute events. Review of Systems 10-point ROS is otherwise unremarkable Physical Examination - Vital Signs Temperature: 97.3 F Blood Pressure: 102/58 Pulse: 76 Respirations: 19 Pulse Ox (%): 99 - Studies Microbiology Data (last 24 hrs): 07/17/21 10:04 Blood - Blood Aerobic Blood Culture - Final No growth in 5 days. 07/17/21 10:04 Blood - Blood Anaerobic Blood Culture - Final No growth in 5 days. 07/17/21 10:00 Blood - Blood Aerobic Blood Culture - Final No growth in 5 days. 07/17/21 10:00 Blood - Blood Anaerobic Blood Culture - Final No growth in 5 days. Assessment And Plan - Plan Physical Exam: General: Other (Rapid/disorganized speech, appears anxious) HEENT: Atraumatic, Normocephalic Neck: Supple, 2+ carotid pulse no bruit Respiratory: Clear to auscultation bilaterally, Normal air movement Cardiovascular: Regular rate/rhythm, Normal S1 S2 Capillary refill: <2 Seconds Gastrointestinal: Other (Tenderness all 4 abdominal quadrants) Integumentary: Other ( right lower extremity cellulitis. Honey crusted lesion to right foot.) Conclusions/Impression: Antibiotics: Vancomycin start: 07/17 Assessment/plan Right lower extremity cellulitis Per patient he has been dealing with this infection since May 17 after he was bit by a spider. States that he had the area I&D data previous hospital. Area now has crusted over lesion. Area improving--recommend DC vancoycin and starting bactrim. Recommend treating for total antibiotic duration of [address] showed cellulitis, no other acute findings. -medical management per primary team -plan of care discussed with Dr. Haas -thank you for consultation
[2021-07-22 13:01] VITALS: BP 115/69; TEMP 97.6
[2021-07-22] MEDS ORDERED: SMZ./TMP. 800/160 MG TABLET PO SCH (21:00)
== END 2021-07-22 19:03 | disposition home or self-care (01) | DRG 603 ==
LOC: ER 08:57 → ERHOLD 12:29 → 2ND 20:01
PROVIDERS: ADMIT Hospitalist; ATTEND Internal Medicine
DX: L03.115 Cellulitis of right lower limb (principal); F17.210 Nicotine dependence, cigarettes, uncomplicated; F41.9 Anxiety disorder, unspecified; Z20.822 Contact with and (suspected) exposure to COVID-19
CPT/HCPCS: 36415; 73701; 80048; 80053; 80076; 80202; 83735; 84145; 85025; 85027; 86140; 87040; 94760; 96365; 96366; 96375; 99285; J0744; J1650; J2270; J2405; J3370; J7030; J7040; J7050; Q9967; U0003